=== PATIENT | male | born 1995 | race Caucasian/White ===

== ENCOUNTER 2017-01-17 20:38 | Emergency (ER) | payer MEDICAID ==
[~2017-01-17] VITALS: Ht 177.8 cm; Wt 63.6 kg
[~2017-01-17 20:38] MED LIST: NOCURR
[2017-01-17] MEDS ORDERED: AMOX TR/POT CLAV 875 MG/125 MG TABLET PO ONE (21:30)
[2017-01-17] MEDS ORDERED: ACETAMINOPHEN 500 MG TABLET PO ONE (21:30)
[2017-01-17 22:57] VITALS: BP 130/58
== END 2017-01-17 23:12 | disposition home or self-care (01) ==
LOC: EMS 20:40
DX: H66.92 Otitis media, unspecified, left ear (principal); R05 Cough
CPT/HCPCS: 99285

== ENCOUNTER 2018-01-14 22:49 | Emergency (ER) | payer MEDICAID ==
[~2018-01-14] VITALS: Ht 170.2 cm; Wt 68.0 kg
[2018-01-14 23:17] VITALS: BP 139/81
[2018-01-14] MEDS ORDERED: TOPI100T37 PO (23:26)
== END 2018-01-15 02:39 | disposition left against medical advice (07) ==
LOC: EMS 22:50
DX: K08.89 Other specified disorders of teeth and supporting structures (principal); R51 Headache; Z53.21 Procedure and treatment not carried out due to patient leaving prior to being seen by health care provider

== ENCOUNTER → 2020-10-30 | Emergency (ER) | payer MEDICAID, OTHER ==
[~2020-10-30] VITALS: Ht 175.3 cm; Wt 63.6 kg
[~2020-10-30] MED LIST changes: -NOCURR; +TOPI100T37 PO
[2020-10-30 02:34] LABS: BASOPHILS % (AUTO) 0.8 % (0.0-2.0); HEMATOCRIT 43.2 % (41-53); HEMOGLOBIN 14.8 g/dL (13.5-17.5); LYMPHOCYTES # (AUTO) 2.5 K/uL (1.0-4.8); MEAN CORPUSCULAR HEMOGLOBIN 30.1 pg (26.0-34.0); MEAN CORPUSCULAR HGB CONC 34.2 G/dL (31.0-37.0); MEAN CORPUSCULAR VOLUME 88 fL (80-100); MONOCYTES # (AUTO) 0.4 K/uL (0.1-1.0); MONOCYTES % (AUTO) 6.5 % (2.0-9.0); NEUTROPHILS # (AUTO) 3.5 K/uL (1.8-7.7); NEUTROPHILS % (AUTO) 51.7 % (40.0-70.0); PLATELET COUNT (AUTO) 377 K/uL (150-450); RED CELL DISTRIBUTION WIDTH 12.6 % (11.5-14.5)
[2020-10-30 02:45] LABS: ANION GAP 8 mmol/L (8-16); CALCIUM, TOTAL 8.8 mg/dL (8.8-10.5); CARBON DIOXIDE 30 mmol/L (22-29); CHLORIDE 100 mmol/L (98-107); CREATININE 0.98 mg/dL (0.60-1.30); GLOMERULAR FILTR. RATE CALC > 60 mL/min (>60); GLUCOSE,RANDOM 82 mg/dL (70-110); POTASSIUM 3.6 mmol/L (3.5-5.1); SODIUM SERUM 138 mmol/L (136-145); UREA NITROGEN, BLOOD 10 mg/dL (7-18)
[2020-10-30 02:57] LABS: ALANINE AMINOTRANSFERASE 24 U/L (12-78); ALBUMIN 4.1 g/dL (3.4-5.0); ALKALINE PHOSPHATASE 71 U/L (46-116); ASPARTATE AMINOTRANSFERASE 11 U/L (15-37); BILIRUBIN,TOTAL 0.3 mg/dL (0.1-1.0); TOTAL PROTEIN, SERUM 7.7 g/dL (6.4-8.2)
[2020-10-30] MEDS: KETOROLAC TROMETHAMINE 30 MG/ML VIAL IM ONE (03:02)
[2020-10-30 03:20] LABS: COVID AG,FIA SOURCE NASOPHARYNGEAL
[2020-10-30 04:00] LABS: INFLUENZA TYPE A NEGATIVE FOR TYPE A (NEGATIVE); INFLUENZA TYPE B NEGATIVE FOR TYPE B (NEGATIVE); RAPID GROUP A STREP NEGATIVE (NEGATIVE)
[2020-10-30 04:10] VITALS: BP 110/65
== END | disposition home or self-care (01) ==
LOC: EMS 01:54
DX: R07.81 Pleurodynia (principal); Z20.822 Contact with and (suspected) exposure to COVID-19
CPT/HCPCS: 36415; 71045; 80053; 84484; 85025; 87426; 87430; 87804; 93005; 96372; 99285; J1885; U0003

== ENCOUNTER 2021-02-22 01:12 | Emergency (ER) | payer OTHER ==
[~2021-02-22] VITALS: Ht 175.3 cm; Wt 63.6 kg
[2021-02-22 01:31] VITALS: BP 105/73
== END 2021-02-22 07:28 | disposition left against medical advice (07) ==
LOC: EMS 01:13
DX: R51.9 Headache, unspecified (principal); Z53.21 Procedure and treatment not carried out due to patient leaving prior to being seen by health care provider